=== PATIENT | female | born 1980 | race Caucasian/White ===

== ENCOUNTER 2018-08-20 19:25 | Emergency (ER) | payer BC ==
[~2018-08-20] VITALS: Ht 162.6 cm; Wt 68.0 kg
[2018-08-20 19:36] VITALS: BP_SYST 107
--- NOTE | 2018-08-20 19:42 | NUR ---
Pt AAOx4 ambulted into ED c/o vaginal bleeding x 2 weeks; denies N/V/D/fever/dysuria/pain/cramping. Pt c/o new onset headache 11/08. No other injuries/complaints per pt/noted. Will continue to monitor.
--- NOTE | 2018-08-20 19:44 | NUR ---
Patient to ER bed 07 to gown for evaluation. Side rails up. Report given to PADMAJA Nicolas.
--- NOTE | 2018-08-20 19:50 | NUR ---
YASMIN Rehman examining patient.
[2018-08-20] MEDS ORDERED: KETOROLAC TROMETHAMINE 30 MG VIAL IM ONE (20:15)
--- NOTE | 2018-08-20 20:38 | NUR ---
Medication administered. Pt tolerated well. No adverse reactions noted. Will continue to monitor.
[2018-08-20 20:41] LABS: BASOPHILS # (AUTO) 0.1 K/uL (0.0-0.2); BASOPHILS % (AUTO) 0.9 % (0.0-2.0); EOSINOPHILS # (AUTO) 0.2 K/uL (0.0-0.4); EOSINOPHILS % (AUTO) 2.7 % (0.0-4.0); HEMATOCRIT 27.9 % (36-48); HEMOGLOBIN 8.8 g/dL (12.0-16.0); LYMPHOCYTES # (AUTO) 2.6 K/uL (1.0-5.5); LYMPHOCYTES % (AUTO) 32.2 % (20.5-51.5); MEAN CORPUSCULAR HEMOGLOBIN 24 pg (27-31); MEAN CORPUSCULAR HGB CONC 32 % (32-36); MEAN CORPUSCULAR VOLUME 75 fL (79.0-98.0); MONOCYTES # (AUTO) 0.6 K/uL (0.0-1.0); MONOCYTES % (AUTO) 7.4 % (1.7-9.3); NEUTROPHILS # (AUTO) 4.5 K/uL (1.8-7.7); NEUTROPHILS % (AUTO) 56.8 % (40.0-70.0); PLATELET COUNT (AUTO) 379 K/uL (130-430); RED CELL DISTRIBUTION WIDTH 16.3 % (9.0-15.0); WHITE BLOOD COUNT (AUTO) 7.9 K/uL (4.8-10.8)
[2018-08-20 20:50] LABS: CALCIUM 8.9 mg/dL (8.4-11.0); CREATININE 0.58 mg/dL (0.55-1.30); POTASSIUM 3.8 mmol/L (3.5-5.1)
[2018-08-20 20:55] LABS: ALBUMIN 3.4 g/dL (3.4-4.8); TOTAL BILIRUBIN 0.2 mg/dL (0.0-1.0)
--- NOTE | 2018-08-20 21:32 | NUR ---
Pt resting comfortably in bed with no signs of distress. Room lights turned off per pt request.
--- NOTE | 2018-08-20 22:05 | NUR ---
Patient given written and verbal discharge instructions and verbalizes understanding. ER MD Coughlin discussed with patient the results and treatment provided. Patient in stable condition. ID arm band removed. Rx of Motrin, Premarin given. Patient educated on pain management and to follow up with PMD. Pain Scale 0. Opportunity for questions provided and answered. Medication side effect fact sheet provided.
[2018-08-20 22:07] VITALS: BP_SYST 112
== END 2018-08-20 22:07 | disposition home or self-care (01) ==
LOC: SED 19:25
DX: N92.0 Excessive and frequent menstruation with regular cycle (principal); Z90.721 Acquired absence of ovaries, unilateral
CPT/HCPCS: 36415; 76830; 76857; 80053; 85025; 96372; 99284; J1885